=== PATIENT | male | born 1960 | race Caucasian/White ===

== ENCOUNTER 2017-03-23 20:17 | Observation (INO) | payer OTHER ==
[~2017-03-23] VITALS: Ht 177.8 cm; Wt 63.5 kg
[2017-03-23 22:05] LABS: HEMOGLOBIN 14.5 gm/dl (14.0-17.5); RED BLOOD COUNT 4.75 M/UL (4.20-5.50); WHITE BLOOD COUNT 4.9 K/UL (4.5-11.0)
[2017-03-23 23:07] LABS: BUN/CREATININE RATIO 20 (0-10)
[2017-03-24 04:39] LABS: BUN/CREATININE RATIO 18 (0-10)
[2017-03-24 04:53] LABS: HEMOGLOBIN 13.3 gm/dl (14.0-17.5); RED BLOOD COUNT 4.38 M/UL (4.20-5.50); WHITE BLOOD COUNT 3.8 K/UL (4.5-11.0)
--- NOTE | 2017-03-25 06:16 | NUR ---
03/24/171929 ENTERED PT'S ROOM R/T PT STATING HE WISHED TO LEAVE AMA. TOLD PT OF THE NEED TO RECEIVE ATIBIOTICS AND FINISH TREATMENT COURSE. PT STATED HE NO LONGER WANTED MEDICAL CARE AND WISHED TO LEAVE. HE STATED HIS DAUGHTER WAS COMING TO GET HIM. PT WAS ALERT AND ORIENTED X3 AND SIGNED AMA PAPERS. PHYSICIAN NOTIFIED PRIOR TO PT SIGNING AMA PAPERS.
[2017-05-28] MEDS ORDERED: AUGMENTIN 875-1 EACH PO (18:04)
[2017-05-28] MEDS ORDERED: LASIX 40 MG TAB40 MG PO (18:04)
[2017-05-28] MEDS ORDERED: ALDACTONE25 MG PO (18:05)
[2017-05-28] MEDS ORDERED: TRAMADOL HCL50 MG PO (18:05)
[2017-06-19] MEDS ORDERED: DIPROSONE 0.05%15 GM EXT (00:49)
[2017-06-19] MEDS ORDERED: OMEPRAZOLE20 M1 PO (00:50)
[2017-06-20] MEDS ORDERED: KRISTALOSE10 GM PO (13:48)
== END 2017-03-24 20:06 | disposition left against medical advice (07) ==
LOC: ER1 20:17 → MED SURG 4 03-24 00:20 → ZEROF 03-24 00:20 → MED SURG 4 03-24 02:15
PROVIDERS: Physician Assistant; ADMIT Internal Medicine
DX: R13.10 Dysphagia, unspecified (principal); R07.89 Other chest pain; D69.6 Thrombocytopenia, unspecified; R74.0 Nonspecific elevation of levels of transaminase and lactic acid dehydrogenase [LDH]; I10 Essential (primary) hypertension; I25.10 Atherosclerotic heart disease of native coronary artery without angina pectoris; E78.5 Hyperlipidemia, unspecified; J44.9 Chronic obstructive pulmonary disease, unspecified; D61.818 Other pancytopenia; F15.10 Other stimulant abuse, uncomplicated; L40.9 Psoriasis, unspecified; K74.60 Unspecified cirrhosis of liver; R16.1 Splenomegaly, not elsewhere classified; F17.210 Nicotine dependence, cigarettes, uncomplicated; Z86.19 Personal history of other infectious and parasitic diseases; Z91.14 Patient's other noncompliance with medication regimen; Z95.1 Presence of aortocoronary bypass graft; Z95.5 Presence of coronary angioplasty implant and graft
CPT/HCPCS: ECHO; 36415; 71010; 80053; 80307; 82550; 82553; 84484; 85025; 87081; 87880; 93005; 93306; 99285; C9113; G0378; G0480; J1956; J2270; J7030

== ENCOUNTER 2021-01-09 22:24 | Observation (INO) | payer OTHER ==
[~2021-01-09] VITALS: Ht 177.8 cm; Wt 83.9 kg
[~2021-01-09 22:24] MED LIST: ALDACTONE25 MG PO; AUGMENTIN 875-1 EACH PO; CEFUROXIME500 MG PO; CORGARD40 MG PO; DIPROSONE 0.05%15 GM EXT; ECOTRIN81 MG PO; FLOMAX 0.4 MG0.4 MG PO; IMDUR ER TAB 3030 MG PO; KRISTALOSE10 GM PO; LACTULOSE20 GM/30 M PO; LASIX 40 MG TAB40 MG PO; NEURONTIN 300300 MG PO; OMEPRAZOLE20 M1 PO; PLAVIX 75 MG TA75 MG PO; PREDNISONE 50 M50 MG PO; QUESTRAN LIGHT 44 GM PO; ROXICODONE TAB 55 MG PO; TRAMADOL HCL50 MG PO; VENTOLIN HFA 66.7 GM INH; VISTARIL 50 MG50 MG PO; ZANTAC150 MG PO; ZITHROMAX250 MG PO; ZOFRAN4 MG PO
[2021-01-09 22:48] LABS: HEMOGLOBIN 10.1 gm/dl (14.0-17.5); RED BLOOD COUNT 4.03 M/UL (4.20-5.50); WHITE BLOOD COUNT 2.9 K/UL (4.5-11.0)
[2021-01-09 23:19] LABS: BUN/CREATININE RATIO 7 (0-10)
[2021-01-10] MEDS ORDERED: PANTOPRAZOLE SO20 MG PO (11:23)
[2021-01-10] MEDS ORDERED: HYDROCODON-ACE1 EAC6 PO (11:23)
[2021-01-10] MEDS ORDERED: GABAPENTIN300 MG PO (11:23)
[2021-01-10] MEDS ORDERED: TRAZODONE HCL100 MG PO (11:24)
[2021-01-10] MEDS ORDERED: ROPINIROLE HCL0.5 MG PO (11:25)
[2021-01-10] MEDS ORDERED: TIZANIDINE HCL4 MG PO (11:25)
[2021-01-10] MEDS ORDERED: HYDROXYZINE HCL50 MG PO (11:26)
[2021-01-10] MEDS ORDERED: FLOMAX 0.4 MG0.4 MG PO (11:27)
[2021-01-10] MEDS ORDERED: ALDACTONE 25MG25 MG PO (11:27)
[2021-01-10] MEDS ORDERED: FERROUS SULFAT325 MG PO (11:27)
[2021-01-10] MEDS ORDERED: CYANOCOBAL1000 MCG/1 INJ (11:28)
[2021-01-11 03:37] LABS: HEMOGLOBIN 10.2 gm/dl (14.0-17.5); RED BLOOD COUNT 4.08 M/UL (4.20-5.50)
[2021-01-11 03:45] LABS: WHITE BLOOD COUNT 3.7 K/UL (4.5-11.0)
[2021-01-12 05:50] LABS: HEMOGLOBIN 10.6 gm/dl (14.0-17.5); RED BLOOD COUNT 4.26 M/UL (4.20-5.50)
[2021-01-13 03:14] LABS: HEMOGLOBIN 10.2 gm/dl (14.0-17.5); RED BLOOD COUNT 4.07 M/UL (4.20-5.50)
[2021-01-13 03:19] LABS: WHITE BLOOD COUNT 5.1 K/UL (4.5-11.0)
[2021-01-13 03:29] LABS: BUN/CREATININE RATIO 17 (0-10)
[2021-01-13] MEDS ORDERED: ASPIRIN EC81 MG PO (16:33)
[2021-01-13] MEDS ORDERED: CORGARD 40MG TA40 MG PO (16:33)
[2021-01-13] MEDS ORDERED: ISOSORBIDE MONO60 MG PO (16:33)
== END 2021-01-13 18:20 | disposition home or self-care (01) ==
LOC: ER1 22:24 → CDU 01-10 00:13 → MED SURG 4 01-10 14:58
PROVIDERS: Family Medicine; Internal Medicine; Physician Assistant; ADMIT Internal Medicine
PROC: B2111ZZ Fluoroscopy of Multiple Coronary Arteries using Low Osmolar Contrast (ICD-10-PCS; principal; 2021-01-13)
PROC: B2181ZZ Fluoroscopy of Left Internal Mammary Bypass Graft using Low Osmolar Contrast (ICD-10-PCS; 2021-01-13)
PROC: B21F1ZZ Fluoroscopy of Other Bypass Graft using Low Osmolar Contrast (ICD-10-PCS; 2021-01-13)
PROC: B2171ZZ Fluoroscopy of Right Internal Mammary Bypass Graft using Low Osmolar Contrast (ICD-10-PCS; 2021-01-13)
PROC: B41F1ZZ Fluoroscopy of Right Lower Extremity Arteries using Low Osmolar Contrast (ICD-10-PCS; 2021-01-13)
DX: R07.9 Chest pain, unspecified (principal); I25.10 Atherosclerotic heart disease of native coronary artery without angina pectoris; I10 Essential (primary) hypertension; N17.9 Acute kidney failure, unspecified; M51.36 Other intervertebral disc degeneration, lumbar region; E78.5 Hyperlipidemia, unspecified; K70.30 Alcoholic cirrhosis of liver without ascites; D69.6 Thrombocytopenia, unspecified; I08.3 Combined rheumatic disorders of mitral, aortic and tricuspid valves; I27.20 Pulmonary hypertension, unspecified; Z20.822 Contact with and (suspected) exposure to COVID-19; Z79.891 Long term (current) use of opiate analgesic; Z79.899 Other long term (current) drug therapy; Z95.1 Presence of aortocoronary bypass graft; Z95.5 Presence of coronary angioplasty implant and graft; Z91.19 Patient's noncompliance with other medical treatment and regimen; Z87.891 Personal history of nicotine dependence; Z86.19 Personal history of other infectious and parasitic diseases
CPT/HCPCS: ECHO; 36415; 71045; 76705; 78452; 80048; 80053; 82550; 82553; 83874; 84484; 85025; 85347; 85610; 93005; 93017; 93306; 93571; 94664; 96372; 96374; 96375; 96376; 99152; 99153; 99285; C1769; C1887; C1894; G0378; J1644; J2250; J2270; J2405; J3010; J3420; J7030; Q0177; Q9967; U0002

== ENCOUNTER 2021-01-23 22:18 | Emergency (ER) | payer OTHER ==
[~2021-01-23 22:18] MED LIST changes: +ALDACTONE 25MG25 MG PO; +ASPIRIN EC81 MG PO; +CORGARD 40MG TA40 MG PO; +CYANOCOBAL1000 MCG/1 INJ; +FERROUS SULFAT325 MG PO; +GABAPENTIN300 MG PO; +HYDROCODON-ACE1 EAC6 PO; +HYDROXYZINE HCL50 MG PO; +ISOSORBIDE MONO60 MG PO; +PANTOPRAZOLE SO20 MG PO; +ROPINIROLE HCL0.5 MG PO; +TIZANIDINE HCL4 MG PO; +TRAZODONE HCL100 MG PO
[2021-01-23 22:46] LABS: HEMOGLOBIN 10.1 gm/dl (14.0-17.5); RED BLOOD COUNT 4.07 M/UL (4.20-5.50); WHITE BLOOD COUNT 3.2 K/UL (4.5-11.0)
[2021-01-23 22:59] LABS: BUN/CREATININE RATIO 9 (0-10)
== END 2021-01-24 04:17 | disposition home or self-care (01) ==
LOC: ER1 22:18
PROVIDERS: Emergency Medicine
DX: R07.9 Chest pain, unspecified (principal); R10.9 Unspecified abdominal pain; J44.9 Chronic obstructive pulmonary disease, unspecified; I10 Essential (primary) hypertension; Z95.1 Presence of aortocoronary bypass graft
CPT/HCPCS: 71045; 80053; 80307; 81001; 82140; 82550; 82553; 83605; 83690; 83735; 83874; 83880; 84100; 84484; 85025; 85610; 85730; 87040; 93005; 96372; 96374; 99285; G0480; J2270; J2405; Q9967

== ENCOUNTER 2021-01-28 14:41 | Emergency (ER) | payer OTHER ==
[2021-01-28 15:59] LABS: RED BLOOD COUNT 3.99 M/UL (4.20-5.50); WHITE BLOOD COUNT 5.1 K/UL (4.5-11.0)
[2021-01-28 16:19] LABS: BUN/CREATININE RATIO 10 (0-10)
== END 2021-01-28 18:50 | disposition home or self-care (01) ==
LOC: ER1 14:41
PROVIDERS: Physician Assistant
DX: R51.9 Headache, unspecified (principal); Z86.19 Personal history of other infectious and parasitic diseases; Z95.1 Presence of aortocoronary bypass graft
CPT/HCPCS: 70496; 70498; 80053; 81001; 82550; 82553; 83874; 84484; 85025; 85610; 96374; 96375; 99284; J1200; J2765; J7030; Q9967

== ENCOUNTER 2021-03-13 20:42 | Emergency (ER) | payer OTHER | END 2021-03-13 23:45 | disposition home or self-care (01) | LOC: ER1 20:42 | DX: J02.9 Acute pharyngitis, unspecified (principal); E78.5 Hyperlipidemia, unspecified; J44.9 Chronic obstructive pulmonary disease, unspecified; I11.9 Hypertensive heart disease without heart failure; Z86.19 Personal history of other infectious and parasitic diseases; Z95.1 Presence of aortocoronary bypass graft; Z79.899 Other long term (current) drug therapy; Z20.822 Contact with and (suspected) exposure to COVID-19 | CPT/HCPCS: 0240U; 71045; 87081; 87880; 99283 ==

== ENCOUNTER 2021-08-19 18:22 | Emergency (ER) | payer OTHER ==
[2021-08-19 20:39] LABS: RED BLOOD COUNT 4.08 M/UL (4.20-5.50); WHITE BLOOD COUNT 3.9 K/UL (4.5-11.0)
[2021-08-19 21:01] LABS: BUN/CREATININE RATIO 6 (0-10)
[2021-08-19] MEDS ORDERED: HYDROXYZINE HCL25 MG PO (21:38)
[2021-08-19] MEDS ORDERED: ELIMITE 5% CREA60 GM TOP (21:38)
== END 2021-08-19 22:00 | disposition home or self-care (01) ==
LOC: ER1 18:22
PROVIDERS: Family Medicine
DX: S40.812A Abrasion of left upper arm, initial encounter (principal); S40.811A Abrasion of right upper arm, initial encounter; I10 Essential (primary) hypertension; D64.9 Anemia, unspecified; F41.9 Anxiety disorder, unspecified; D69.6 Thrombocytopenia, unspecified; F17.200 Nicotine dependence, unspecified, uncomplicated; I25.10 Atherosclerotic heart disease of native coronary artery without angina pectoris; X58.XXXA Exposure to other specified factors, initial encounter
CPT/HCPCS: 80053; 82550; 82553; 83735; 83874; 84484; 85025; 99283; Q0177

== ENCOUNTER 2022-04-08 07:16 | Emergency (ER) | payer OTHER ==
[~2022-04-08 07:16] MED LIST changes: +ADVAIR HFA 115/1 INH INH; +ALBUTEROL2.5 MG/3 M INH; +AMLODIPINE BESYL5 MG PO; +AMOX TR-K CLV1 EAC4 PO; +ASCORBIC ACID500 MG PO; +ELIMITE 5% CREA60 GM TOP; +FUROSEMIDE40 MG PO; +HYDROXYZINE HCL25 MG PO; +KLOR-CON 1010 MEQ PO; +LEVOFLOXACIN750 MG PO; +LOPRESSOR 25 MG25 MG PO; +MIRTAZAPINE7.5 MG PO; +PROTONIX40 MG PO; +ZYRTEC10 MG PO
[2022-04-08 08:03] LABS: HEMOGLOBIN 8.4 gm/dl (14.0-17.5); WHITE BLOOD COUNT 3.2 K/UL (4.5-11.0)
[2022-04-08 08:25] LABS: BUN/CREATININE RATIO 10 (0-10)
[2022-04-08 15:45] LABS: BODY FLUID SOURCE ASCITES
[2022-04-08 15:46] LABS: MONONUCLEAR CELLS 88.1 (75-100); POLYMORPHONUCLEAR % 11.9 (0-25); RBC (AUTOMATED) 2400 (0-100000); WBC (AUTOMATED) 352 (0-500)
== END 2022-04-08 16:58 | disposition home or self-care (01) ==
LOC: ER1 07:16
PROVIDERS: Family Medicine
PROC: 0W9G3ZZ Drainage of Peritoneal Cavity, Percutaneous Approach (ICD-10-PCS; principal; 2022-04-08)
PROC: BW40ZZZ Ultrasonography of Abdomen (ICD-10-PCS; 2022-04-08)
DX: K74.60 Unspecified cirrhosis of liver (principal); R18.8 Other ascites; K40.20 Bilateral inguinal hernia, without obstruction or gangrene, not specified as recurrent; K42.9 Umbilical hernia without obstruction or gangrene
CPT/HCPCS: 71045; 80053; 82550; 82553; 83605; 83690; 83735; 83880; 84484; 85025; 85610; 87205; 89051; 93005; 96374; 99285; P9047

== ENCOUNTER 2022-04-16 07:58 | Inpatient (IN) | payer OTHER ==
[~2022-04-16] VITALS: Ht 175.3 cm; Wt 86.2 kg
[~2022-04-16 07:58] MED LIST changes: -GABAPENTIN300 MG PO; +GABAPENTIN600 MG PO
[2022-04-16 08:33] LABS: HEMOGLOBIN 8.5 gm/dl (14.0-17.5); RED BLOOD COUNT 3.98 M/UL (4.20-5.50); WHITE BLOOD COUNT 4.6 K/UL (4.5-11.0)
[2022-04-16 09:06] LABS: BUN/CREATININE RATIO 14 (0-10)
[2022-04-16] MEDS ORDERED: FOLIC ACID1 MG PO (13:09)
[2022-04-16] MEDS ORDERED: METOPROLOL TART50 MG PO (13:10)
[2022-04-16] MEDS ORDERED: PANTOPRAZOLE SO20 MG PO (13:12)
[2022-04-16] MEDS ORDERED: PROAIR HFA8.5 GM INH (13:14)
[2022-04-17 02:21] LABS: HEMOGLOBIN 8.1 gm/dl (14.0-17.5); RED BLOOD COUNT 3.76 M/UL (4.20-5.50)
[2022-04-17 02:34] LABS: WHITE BLOOD COUNT 2.9 K/UL (4.5-11.0)
[2022-04-17 02:55] LABS: BUN/CREATININE RATIO 16 (0-10)
[2022-04-18 05:52] LABS: HEMOGLOBIN 7.8 gm/dl (14.0-17.5); RED BLOOD COUNT 3.65 M/UL (4.20-5.50); WHITE BLOOD COUNT 2.8 K/UL (4.5-11.0)
[2022-04-18 06:16] LABS: BUN/CREATININE RATIO 16 (0-10)
--- NOTE | 2022-04-18 10:40 | NUR ---
PT LYING IN BED MOANING AND SAID HIS ABDOMEN IS KILLING HIM. DR FERNANDEZ AT BEDSIDE, MEDICATION CHANGED PER REQUEST.
--- NOTE | 2022-04-18 10:50 | NUR ---
PT GIVEN ORDERED DOSE OF MORPHINE REQUESTED. HE WAS IN HIS CLOSET AND SAID HE WAS GETTING HIS SHOES OUT. I EDUCATED HIM THAT THIS WAS A NONSMOKING FACILITY AND HE HAD TELEMETRY ON IT WOULD BE SAFER FOR HIM TO STAY ON THE UNIT. HE DECLINED AND LEFT THE UNIT. DR FERNANDEZ MADE AWARE.NO NEW ORDERS GIVEN.
--- NOTE | 2022-04-18 17:15 | NUR ---
PT HAS LEFT THE FLOOR SEVERAL OTHER TIMES TODAY AND I HAVE REDIRECTED HIM EACH TIME. HE IS RESTING AT THIS TIME, HE HAS HIS CALL GIANG AND PHONE IN REACH.
[2022-04-19 02:10] LABS: HEMOGLOBIN 8.1 gm/dl (14.0-17.5); RED BLOOD COUNT 3.73 M/UL (4.20-5.50); WHITE BLOOD COUNT 2.8 K/UL (4.5-11.0)
[2022-04-19 02:39] LABS: BUN/CREATININE RATIO 13 (0-10)
[2022-04-19] MEDS ORDERED: ALDACTONE 25MG25 MG PO (12:10)
[2022-04-19] MEDS ORDERED: FERROUS SULFAT325 M2 PO (12:10)
[2022-04-19] MEDS ORDERED: XIFAXAN 550 MG550 MG PO (12:10)
[2022-04-19] MEDS ORDERED: LEVOFLOXACIN500 MG PO (12:10)
[2022-04-19] MEDS ORDERED: LASIX40 MG PO (12:10)
== END 2022-04-19 13:50 | disposition home or self-care (01) | DRG 433 ==
LOC: ER1 07:58 → MED SURG 4 11:47 → CDU 11:47 → MED SURG 4 14:58
PROVIDERS: Internal Medicine; Physician Assistant Medical; Student in an Organized Health Care Education/Training Program; ADMIT Internal Medicine
PROC: 0W9G3ZZ Drainage of Peritoneal Cavity, Percutaneous Approach (ICD-10-PCS; principal; 2022-04-16)
PROC: BW40ZZZ Ultrasonography of Abdomen (ICD-10-PCS; 2022-04-16)
DX: K74.60 Unspecified cirrhosis of liver (principal); B19.10 Unspecified viral hepatitis B without hepatic coma; Z20.822 Contact with and (suspected) exposure to COVID-19; D61.818 Other pancytopenia; R18.8 Other ascites; J90 Pleural effusion, not elsewhere classified; K76.6 Portal hypertension; J94.8 Other specified pleural conditions; F17.210 Nicotine dependence, cigarettes, uncomplicated; E78.5 Hyperlipidemia, unspecified; D50.9 Iron deficiency anemia, unspecified; K40.90 Unilateral inguinal hernia, without obstruction or gangrene, not specified as recurrent; Z79.01 Long term (current) use of anticoagulants; Z79.82 Long term (current) use of aspirin; Z95.1 Presence of aortocoronary bypass graft; Z82.49 Family history of ischemic heart disease and other diseases of the circulatory system
CPT/HCPCS: 36415; 71045; 80053; 82550; 82553; 82607; 82728; 82746; 83036; 83540; 83550; 83690; 83735; 84484; 85025; 85027; 85045; 85610; 85730; 86850; 86870; 86900; 86901; 93005; 96374; 96375; 96376; 99285; C9113; J0696; J1170; J1200; J1756; J1940; J2270; J7030; Q9967